=== PATIENT | male | born 1950 | race Caucasian/White ===

== ENCOUNTER 2020-04-11 07:29 | Outpatient (REF) | payer MEDICARE, SELFPAY ==
--- NOTE | 2020-04-11 | US_ITS ---
EXAMINATION: ABDOMINAL AORTIC ULTRASOUND CLINICAL INFORMATION: Abdominal aortic aneurysm screening. COMPARISON: None. TECHNIQUE: Real-time ultrasound and Doppler techniques (integrating B-mode 2-D vascular images, Doppler spectral analysis and color flow Doppler imaging) were utilized to interrogate the abdominal aorta. FINDINGS: Proximal aorta: 2.9 cm AP; 2.7 cm transverse. Middle aorta: 2.6 cm AP; 2.3 cm transverse. Distal aorta: 2.0 cm AP; 2.2 cm transverse. Velocity in the abdominal aorta is 103 cm/s distally. Right common iliac artery: 1.5 cm. Left common iliac artery: 1.4 cm ADDITIONAL FINDINGS: None. US/US abdominal aortic aneurysm IMPRESSION: No abdominal aortic aneurysm.
== END 2020-04-11 07:30 | disposition home or self-care (01) ==
LOC: HO.US 07:29
PROVIDERS: Visit Provider Internal Medicine
DX: Z13.6 Encounter for screening for cardiovascular disorders (principal)
CPT/HCPCS: 76706

== ENCOUNTER 2021-09-12 08:45 | Day surgery (SDC) | payer MEDICARE, SELFPAY ==
[2021-09-05 15:08] VITALS: BMI 41.8
--- NOTE | 2021-09-07 10:27 | HO.ANESPROP2 ---
Documented by User: Zee Pulliam NP 09/07/21 10:35 HPI - Anesthesia Eval Consult details Narrative: 71yo M for Colonoscopy Plavix s/p stent after STEMI 2019 Stable per 04/2021 cardiac telehealth visit. No complaints of chest pain or pressure, palps, dizziness, lightheadedness PMFSH Past Medical History Medical History Anxiety Arthritis Attention deficit disorder (ADD) Back pain CAD (coronary artery disease) Elevated cholesterol HTN (hypertension) MARIN on CPAP Spinal stenosis Surgical History Surgical History (Updated 09/05/21 @ 15:07 by Jayleen Chiang RN) H/O heart artery stent History of arthroscopy of both knees History of carpal tunnel release of both wrists History of lumbar surgery Hx of cervical discectomy Hx of colonoscopy Hx of rhinoplasty Social History Social History Are you a primary health care recruiter to a significant other at home: No Patient Tobacco Use Status: Former Tobacco user Quit Date: Tobacco use type: Cigarette Use of substances other than those prescribed or required for medical reasons: No Have you been hit, kicked, punched, or otherwise hurt by someone within the past year? If so, by whom?: No Are you DNR?: No Advance Directives: No Advance Directives Information Provided: Yes Advance Directives on File: No Recently lost weight without trying: No Meds Allergies Allergy/AdvReac Type Severity Reaction Status Date / Time codeine [CODEINE] Allergy Severe NIGHTMARES Verified 09/05/21 14:58 Home Medications Medication Instructions Recorded Confirmed Last Taken Type atorvastatin 80 mg tablet 1 tab PO DAILY 09/05/21 09/05/21 Unknown History bupropion HCl 300 mg 24 hr tablet, 450 mg PO DAILY 09/05/21 09/05/21 Unknown History extended release clopidogrel 75 mg tablet 1 tab PO DAILY 09/05/21 09/05/21 Unknown History irbesartan 75 mg tablet 1 tab PO DAILY 09/05/21 09/12/21 09/12/21 History lamotrigine 100 mg tablet 1 tab PO DAILY 09/05/21 09/05/21 Unknown History metoprolol succinate 25 mg 1 tab PO DAILY 09/05/21 09/12/21 09/12/21 History tablet,extended release 24 hr multivitamin 1 tab PO DAILY 09/05/21 09/05/21 Unknown History Exam Exam Date and Time: September 07, 2021 1027 Height,Weight and Vital Signs: Height 5 ft 8 in Weight 124.738 kg Narrative Narrative: Per cardiology note: EKG 09/2018: NSR, LAFB, No IV conduction delay ECHO 03/2019: EF 60-65%, Mild DD, No significant valve disease, Normal aortic size Carotid US 12/2019: 50-69%, right side stenosis, <50% left side stenosis Lexiscan 02/2021: No evidence of ischemia or infarct Assessment and Plan Assessment Anesthesia Assessment: Chart Reviewed Documented by User: Aj Menjivar MD 09/12/21 11:00 [facility] Past Medical History Medical History Anxiety Arthritis Attention deficit disorder (ADD) Back pain CAD (coronary artery disease) Elevated cholesterol HTN (hypertension) MARIN on CPAP Spinal stenosis Family History Family history of problems with anesthesia: No Surgical History Surgical History (Updated 09/05/21 @ 15:07 by Jayleen Chiang RN) H/O heart artery stent History of arthroscopy of both knees History of carpal tunnel release of both wrists History of lumbar surgery Hx of cervical discectomy Hx of colonoscopy Hx of rhinoplasty History of Problems with Anesthesia: No Social History Social History Are you a primary health care recruiter to a significant other at home: No Patient Tobacco Use Status: Former Tobacco user Quit Date: Tobacco use type: Cigarette Use of substances other than those prescribed or required for medical reasons: No Have you been hit, kicked, punched, or otherwise hurt by someone within the past year? If so, by whom?: No Are you DNR?: No Advance Directives: No Advance Directives Information Provided: Yes Advance Directives on File: No Recently lost weight without trying: No Meds Allergies Allergy/AdvReac Type Severity Reaction Status Date / Time codeine [CODEINE] Allergy Severe NIGHTMARES Verified 09/05/21 14:58 Home Medications Medication Instructions Recorded Confirmed Last Taken Type atorvastatin 80 mg tablet 1 tab PO DAILY 09/05/21 09/05/21 Unknown History bupropion HCl 300 mg 24 hr tablet, 450 mg PO DAILY 09/05/21 09/05/21 Unknown History extended release clopidogrel 75 mg tablet 1 tab PO DAILY 09/05/21 09/05/21 Unknown History irbesartan 75 mg tablet 1 tab PO DAILY 09/05/21 09/12/21 09/12/21 History lamotrigine 100 mg tablet 1 tab PO DAILY 09/05/21 09/05/21 Unknown History metoprolol succinate 25 mg 1 tab PO DAILY 09/05/21 09/12/21 09/12/21 History tablet,extended release 24 hr multivitamin 1 tab PO DAILY 09/05/21 09/05/21 Unknown History Exam Airway Mallampati Class: III TM Dist: >3cm Neck ROM: Full Assessment and Plan Assessment Anesthesia Assessment: Anesthesia Plan Discussed Final Anesthetic Review Family History of Problems with Anesthesia: No History of Problems with Anesthesia: No NPO: Yes ASA Class: III Final Preanesthetic Review: No Changes in Pt Med Stat, Meds/Allgs Chart Reviewed, Consent Obtained/Reviewed and Anes Risks/Benef Reviewed Patient Risk: Low Procedure Risk: Low Anesthetic Plan Anesthetic Plan: MAC: Disposition: Standard PACU
--- NOTE | 2021-09-12 | ECG_ITS ---
Test Reason : CAD, PREOP Blood Pressure : / mmHG Vent. Rate : 062 BPM Atrial Rate : 062 BPM P-R Int : 182 ms QRS Dur : 114 ms QT Int : 424 ms P-R-T Axes : 030 -52 038 degrees QTc Int : 430 ms Normal sinus rhythm Pulmonary disease pattern Left anterior fascicular block Abnormal ECG When compared with ECG of 21-APR-2018 08:03, ST no longer elevated in Inferior leads Normal sinus rhythm is now Present Referred By: Zee Pulliam Electronically Signed By:KALI MURO MD
[2021-09-12 09:46] VITALS: BP 160/73; PULSE 64; RESP 20; TEMP 36.4; O2SAT 98
[2021-09-12 09:54] LABS: Hemoglobin 14.1 g/dl (14.0-18.0); Mean Corpuscular HGB Conc 32.8 g/dl (31.0-36.0); Mean Corpuscular Volume 88.3 fL (80.0-98.0); Mean Platelet Volume 9.9 fL (9.4-12.4); Platelet Count 212 X10*3/uL (160-400); Red Blood Count 4.87 X10*6/uL (4.60-5.80); Red Cell Distribution Width 12.9 % (11.0-16.0); White Blood Count 7.3 X10*3/uL (4.8-10.8)
[2021-09-12 10:08] LABS: Anion Gap 12 (12-20); Blood Urea Nitrogen 11 mg/dL (9-16); Carbon Dioxide 24 mmol/L (22-29); Chloride 108 mmol/L (96-108); Estimated Glomerular Filt Rate > 60; Glucose Fasting 90 mg/dL (60-99); Potassium 4.1 mmol/L (3.3-5.1); Sodium 140 mmol/L (135-145)
[2021-09-12] MEDS: Lactated Ringers 1,000 ML 100 ML IVCONT (10:16)
--- NOTE | 2021-09-12 11:05 | MHC.SHP ---
Pre-Procedural Eval Section A Date of Service: 09/12/21 Section B Chief Complaint: screening Details of Present Illness: see H&P no changes Relevant Family History (Specify if Yes): No Relevant Social History: None Present Medications: see Short Stay Collaborative assessment Medical History: No relevant PMH History of Previous Operations: No relevant previous surgery Allergies: Allergies Allergy/AdvReac Type Severity Reaction Status Date / Time codeine [CODEINE] Allergy Severe NIGHTMARES Verified 09/05/21 14:58 Review of Systems Sugical H&P ROS: Negative: Constitution, Cardiovascular, Respiratory, Neurological, Psychiatric, Hem-Onc, Allergic/Immunologic, Gastrointestinal, Genitourinary, Musculoskeletal, Integumentary, Endocrine and Eyes/Ears/Nose/Throat Exam Surgical H&P Exam: Normal: HEENT, Normal: Heart, Normal: Lungs, Normal: Extremities, Normal: Abdomen, Normal: Skin and Normal: Neurological Plan Diagnosis/Plan: Unchanged I have reviewed the history and physical and performed a pertinent physical examination on my patient. No changes have occurred unless specified.
--- NOTE | 2021-09-12 11:33 | P.BOP_ITS ---
Brief Operative Note Date of Service: 09/12/21 Pre-op diagnosis: screening Post-op diagnosis: same (colo n polyp) Procedure: colonoscopy Surgeon: Luac Lewis Anesthesia: MAC Was an Photo Equipment Technician used for this Procedure?: No Estimated blood loss (mL): 2 Pathology: other (polyp x1) Condition: stable Disposition: PACU
[2021-09-12 11:35] VITALS: BP 125/63; PULSE 54; RESP 16; TEMP 36.8; O2SAT 96
[2021-09-12 11:50] VITALS: BP 121/56; PULSE 58; RESP 18; TEMP 36.7; O2SAT 97
--- NOTE | 2021-09-12 12:19 | OP_ITS ---
SURGEON: Luca Lewis MD INDICATIONS: Colon cancer screening. PREOPERATIVE DIAGNOSIS: POSTOPERATIVE DIAGNOSIS: PROCEDURE PERFORMED: Colonoscopy to the terminal ileum with biopsy. ESTIMATED BLOOD LOSS: COMPLICATIONS: ANESTHESIA: ASSISTANTS: SPECIMENS: MEDICATIONS: Monitored anesthesia care. DESCRIPTION OF PROCEDURE: History and physical were performed. The risks and benefits of the procedure were explained to the patient. Informed consent was obtained. The patient was placed in left lateral decubitus position. A digital rectal exam was performed and was found to be normal. The Olympus pediatric video colonoscope was introduced into the rectum and advanced to the cecum without difficulty. The cecum was identified by transillumination, palpation, identification of ileocecal valve. Examination was performed. The scope was removed. He tolerated the procedure well and was taken to recovery area in stable condition. FINDINGS: The terminal ileum was examined and appeared normal. The visualized colonic mucosa was normal. There was some liquid stool and undigested food in the colon limiting the examination for detection of small polyps. This was washed and suctioned. At 80 cm was a less than 5 mm sessile polyp. It was removed with biopsy forceps. No other polyps were identified. Retroflexed examination showed internal hemorrhoids that were [id number] in size. IMPRESSION: Colon polyp. RECOMMENDATION: Follow up the biopsy results. MD TRINI Soliz/COURTNEY / [id number] MTDD
== END 2021-09-12 12:10 | disposition home or self-care (01) ==
PROVIDERS: Nurse Practitioner; PCP Internal Medicine; Visit Provider Internal Medicine Gastroenterology
PROC: 0DJD8ZZ Inspection of Lower Intestinal Tract, Via Natural or Artificial Opening Endoscopic (ICD-10-PCS; CPT 45378; principal; 2021-09-12 10:20)
DX: Z12.11 Encounter for screening for malignant neoplasm of colon (principal); Z86.010 Personal history of colon polyps; D12.4 Benign neoplasm of descending colon; K64.8 Other hemorrhoids; G47.33 Obstructive sleep apnea (adult) (pediatric); E78.00 Pure hypercholesterolemia, unspecified; I25.10 Atherosclerotic heart disease of native coronary artery without angina pectoris; Z98.61 Coronary angioplasty status; I25.2 Old myocardial infarction; I10 Essential (primary) hypertension; Z79.899 Other long term (current) drug therapy; Z88.8 Allergy status to other drugs, medicaments and biological substances; Z87.891 Personal history of nicotine dependence
CPT/HCPCS: 45380; 36415; 80048; 85027; 88305; 93005

== ENCOUNTER 2024-02-28 08:23 | Day surgery (SDC) | payer MEDICARE, SELFPAY ==
[2024-02-28] MEDS: Lactated Ringers 1,000 ML 50 ML IVCONT (08:57)
--- NOTE | 2024-02-28 09:01 | HO.ANESPROP2 ---
[facility] Past Medical History Medical History Myocardial infarct Spinal stenosis Arthritis Anxiety Attention deficit disorder (ADD) MARIN on CPAP Elevated cholesterol CAD (coronary artery disease) HTN (hypertension) Back pain Family History Family history of problems with anesthesia: No Surgical History Surgical History H/O heart artery stent History of lumbar surgery Hx of cervical discectomy Hx of rhinoplasty Hx of colonoscopy History of arthroscopy of both knees History of carpal tunnel release of both wrists History of Problems with Anesthesia: No Social History Social History Housing Other:: mobile home Are you a primary health and social care teacher to a significant other at home: No Do you presently have visiting nurse or other home services: No Patient Tobacco Use Status: Former Tobacco user Tobacco use type: Cigarette Meds Allergies Allergy/AdvReac Type Severity Reaction Status Date / Time codeine [CODEINE] Allergy Severe NIGHTMARES Verified 02/28/24 09:10 Active Medications: Current Medications Lactated Ringer's (Lr) 1,000 mls @ 50 mls/hr IVCONT .Q20H NILAM Last Admin: 02/28/24 08:57 Dose: 50 mls/hr Home Medications ?Medication ?Instructions ?Recorded ?Confirmed ?Last Taken ?Type atorvastatin 80 mg tablet 1 tab PO DAILY 09/05/21 02/28/24 Unknown History bupropion HCl 300 mg 24 hr tablet, 450 mg PO DAILY 09/05/21 02/28/24 Unknown History extended release clopidogrel 75 mg tablet 1 tab PO DAILY 09/05/21 02/28/24 02/21/24 History irbesartan 75 mg tablet 1 tab PO DAILY 09/05/21 02/28/24 09/12/21 History lamotrigine 100 mg tablet 1 tab PO DAILY 09/05/21 02/28/24 Unknown History metoprolol succinate 25 mg 1 tab PO DAILY 09/05/21 02/28/24 09/12/21 History tablet,extended release 24 hr multivitamin 1 tab PO DAILY 09/05/21 02/28/24 Unknown History Exam Airway Mallampati Class: III TM Dist: >3cm Neck ROM: Full Denture: Upper Partial: Lower Loose/Missing/Broken Teeth: Yes, Upper and Lower Heart: RRR Lungs: CTA Assessment and Plan Assessment Anesthesia Assessment: Anesthesia Plan Discussed and Chart Reviewed Final Anesthetic Review Family History of Problems with Anesthesia: No History of Problems with Anesthesia: No NPO: Yes ASA Class: III Final Preanesthetic Review: Meds/Allgs Chart Reviewed, Consent Obtained/Reviewed and Anes Risks/Benef Reviewed Patient Risk: Intermediate Procedure Risk: Intermediate Anesthetic Plan Anesthetic Plan: MAC: Disposition: Standard PACU
[2024-02-28 09:07] VITALS: BMI 43.3
[2024-02-28 09:08] VITALS: BP 150/54; PULSE 58; RESP 18; TEMP 36.6; O2SAT 97
--- NOTE | 2024-02-28 09:34 | MHC.SHP ---
Pre-Procedural Eval Section A - 24 Hr Update-Section A only Date of Service: 02/28/24 The patient is an INPATIENT: No Changes since office visit: No Cold of Flu in the past 2 weeks, No New Medical Problems, No Changes in Medication and No Patient answered all questions The patient has been examined within 24 hours of the surgical procedure. The History & Physical has been completed within 30 days and I have reviewed it.: Yes Section B - Complete if H&P > 30 days Chief Complaint: Abnormal findings on diagnostic imaging Allergies: Allergies Allergy/AdvReac Type Severity Reaction Status Date / Time codeine [CODEINE] Allergy Severe NIGHTMARES Verified 02/28/24 09:10 Plan I have reviewed the history and physical and performed a pertinent physical examination on my patient. No changes have occurred unless specified. Time Spent With Patient Time: Total time managing care of this patient today ____ minutes.
[2024-02-28 09:56] VITALS: BP 97/45; PULSE 55; RESP 12; TEMP 36.8; O2SAT 98
[2024-02-28 10:04] VITALS: O2SAT 99
[2024-02-28 10:11] VITALS: BP 120/56; PULSE 57; RESP 16; O2SAT 95
--- NOTE | 2024-02-28 10:25 | OP_ITS ---
DATE OF SERVICE: 02/28/2024 SURGEON: Luca Lewis MD INDICATIONS: Abnormal CT scan of the esophagus. PREOPERATIVE DIAGNOSIS: POSTOPERATIVE DIAGNOSIS: PROCEDURE PERFORMED: Upper endoscopy with biopsy. ESTIMATED BLOOD LOSS: COMPLICATIONS: ANESTHESIA: Monitored anesthesia care. ASSISTANTS: SPECIMENS: DESCRIPTION OF PROCEDURE: A history and physical was performed. The risks and benefits of the procedure were explained to the patient and informed consent was obtained. The patient was placed in the left lateral decubitus position. The Olympus video gastroscope was introduced into the esophagus, stomach, and duodenum. Examination was performed and the scope was removed. He tolerated the procedure well and was returned to the recovery area in stable condition. FINDINGS: Esophagus: The esophagus was normal. There was no esophagitis. No mass was identified. Biopsies were obtained from the EG junction. Stomach: The stomach showed no evidence of masses or ulcers. There was mild scattered erythema consistent with gastritis in the body. Biopsies were obtained from the antrum. Duodenum: The bulb and 2nd portion were normal. IMPRESSION: Gastritis. RECOMMENDATION: Follow up the biopsy results. MD TRINI Soliz/COURTNEY / [id number]
[2024-02-28 10:26] VITALS: BP 121/52; PULSE 55; RESP 16; TEMP 36.4; O2SAT 95
== END 2024-02-28 11:31 | disposition home or self-care (01) ==
PROVIDERS: PCP Internal Medicine; Visit Provider Internal Medicine Gastroenterology
PROC: 0DJ08ZZ Inspection of Upper Intestinal Tract, Via Natural or Artificial Opening Endoscopic (ICD-10-PCS; CPT 43235; principal; 2024-02-28 14:10)
DX: K29.60 Other gastritis without bleeding (principal); R93.3 Abnormal findings on diagnostic imaging of other parts of digestive tract; I10 Essential (primary) hypertension; R78.5 Finding of other psychotropic drug in blood; G47.33 Obstructive sleep apnea (adult) (pediatric); Z99.89 Dependence on other enabling machines and devices; Z79.02 Long term (current) use of antithrombotics/antiplatelets; Z79.899 Other long term (current) drug therapy
CPT/HCPCS: 43239; 88305; 88313; 88342; J2003; J2704